=== PATIENT | male | born 1980 | race Caucasian/White ===

== ENCOUNTER 2017-08-25 10:17 | Emergency (ER) | payer BC, OTHER ==
[2017-08-25 11:59] VITALS: BP 124/70
--- NOTE | 2017-08-25 12:29 | UC ---
Throat Pain/Nasal K[place] HPI - History of Current Complaint Chief Complaint: UCRespiratory Stated Complaint: SORE THROAT Hx Obtained From: Patient Onset/Duration: Gradual Onset - started 3 days ago with cold symps, now has ST and nasal congestion. was worse this am than now Severity: Moderate Associated Signs & Symptoms: Positive: Negative - Allergies/Home Medications Allergies/Adverse Reactions: Allergies Allergy/AdvReac Type Severity Reaction Status Date / Time No Known Allergies Allergy Verified 08/25/17 11:52 Home Medications: Home Medications Acetaminophen [Acetaminophen Extra Stren] 2 tab PO QID PRN 08/25/17 [History Confirmed 08/25/17] Diphenhydramine HCl [Benadryl Allergy 25 MG CAP] 1 cap PO BID PRN 08/25/17 [ History Confirmed 08/25/17] PMH/Surg Hx/FS Hx/Imm Hx Previously Healthy: Yes - Surgical History Surgical History: Yes Surgery Procedure, Year, and Place: SHOULDER SURGERY WHEN YOUNGER - Family History Known Family History: Positive: None - Social History Occupation: Employed Full-time Lives: With Family Alcohol Use: Daily Substance Use Type: None Smoking Status (MU): Never Smoked Tobacco - Immunization History Vaccination Up to Date: Yes Review of Systems Constitutional: Negative Skin: Negative ENT: Sore Throat, Sinus Congestion Respiratory: Negative Cardiovascular: Negative Gastrointestinal: Negative Neurological: Negative Psychological: Negative All Other Systems Reviewed And Are Negative: Yes Physical Exam Triage Information Reviewed: Yes Appearance: Well-Appearing, No Pain Distress, Well-Nourished Vital Signs: Initial Vital Signs Temp 98.3 F 08/25/17 11:53 Pulse 69 08/25/17 11:53 Resp 16 08/25/17 11:53 BP 124/70 08/25/17 11:53 Pulse Ox 98 08/25/17 11:53 Vital Signs Reviewed: Yes Eye Exam: Normal Eyes: Positive: Conjunctiva Clear ENT: Positive: Pharyngeal erythema, TMs normal. Negative: Sinus tenderness Neck: Positive: Supple, Nontender, No Lymphadenopathy Respiratory Exam: Normal Cardiovascular Exam: Normal Cardiovascular: Positive: RRR Neurological Exam: Normal Neurological: Positive: Alert Psychological Exam: Normal Skin Exam: Normal Skin: Negative: rashes Throat Pain/Nasal Course/Dx - Differential Dx/Diagnosis Differential Diagnosis/HQI/PQRI: Influenza, Sinusitis, Tonsillitis, URI Provider Diagnoses: Upper respiratory infection Discharge - Discharge Plan Condition: Good Disposition: HOME Patient Education Materials: Upper Respiratory Infection (ED) Referrals: Miky Montilla MD [Primary Care Provider] - 3 Days (if no better) Additional Instructions: drink plenty of fluids use over the counter cold symptom relief medicine as directed
== END 2017-08-25 12:38 | disposition home or self-care (01) ==
LOC: UCEAST 10:17
DX: J06.9 Acute upper respiratory infection, unspecified (principal)
CPT/HCPCS: 87651; 99211; G0463

== ENCOUNTER 2019-03-08 16:47 | Emergency (ER) | payer BC ==
[2019-03-08 16:56] VITALS: BP 129/83
--- NOTE | 2019-03-08 17:19 | UC ---
Respiratory Complaint HPI - HPI Summary HPI Summary: 38 year old make presents with sinus pressure over the past few days. Denies associated uri symptoms, no cough, runny nose, fever nor ear pain. He has noted occasional ear pressure. Denies severe headache, no pain in his temples, visual disturbance nor weakness. - History of Current Complaint Chief Complaint: UCGeneralIllness Stated Complaint: headache, AND SINUS PRESSURE Time Seen by Provider: 03/08/19 17:00 Hx Obtained From: Patient Onset/Duration: Gradual Onset Timing: Intermittent Episodes Severity Initially: Mild Pain Intensity: 4 Aggravating Factors: Nothing Alleviating Factors: Nothing Associated Signs And Symptoms: Positive: Sinus Discomfort - Risk Factors Pulmonary Embolism Risk Factors: Negative Cardiac Risk Factors: Negative Pseudomonas Risk Factors: Negative Tuberculosis Risk Factors: Negative - Allergies/Home Medications Allergies/Adverse Reactions: Allergies Allergy/AdvReac Type Severity Reaction Status Date / Time No Known Allergies Allergy Verified 03/08/19 16:56 Home Medications: Home Medications Cbd Oil 0.5 ml PO QPM 03/08/19 [History Confirmed 03/08/19] L.acidoph,Paracasei, B.lactis [Probiotic] 1 each PO DAILY 03/08/19 [History Confirmed 03/08/19] Magnesium Oxide [Magnesium] 500 mg PO DAILY 03/08/19 [History Confirmed 03/08/19 ] Multivitamin [Multivitamins] 1 each PO DAILY 03/08/19 [History Confirmed ] Pseudoephedrine HCL ER TAB* [Sudafed 12 Hour*] 120 mg PO BID PRN 03/08/19 [ History Confirmed 03/08/19] PMH/Surg Hx/FS Hx/Imm Hx Previously Healthy: Yes - Surgical History Surgical History: Yes Surgery Procedure, Year, and Place: SHOULDER SURGERY WHEN YOUNGER - Family History Known Family History: Negative: Cardiac Disease, Hypertension, Diabetes - Social History Alcohol Use: Weekly Substance Use Type: None Substance Use Comment - Amount & Last Used: CBD oil Smoking Status (MU): Never Smoked Tobacco - Immunization History Vaccination Up to Date: Yes Review of Systems All Other Systems Reviewed And Are Negative: Yes Constitutional: Positive: Negative Skin: Positive: Negative Eyes: Positive: Negative ENT: Positive: Sinus Pain/Tenderness - maxillary Respiratory: Positive: Negative Cardiovascular: Positive: Negative Gastrointestinal: Positive: Negative Motor: Positive: Negative Neurovascular: Positive: Negative Musculoskeletal: Positive: Negative Neurological: Positive: Negative Physical Exam Triage Information Reviewed: Yes Appearance: Well-Appearing, No Pain Distress Vital Signs: Initial Vital Signs Temp 98.1 F 03/08/19 16:52 Pulse 77 03/08/19 16:52 Resp 16 03/08/19 16:52 BP 129/83 03/08/19 16:52 Pulse Ox 100 03/08/19 16:52 Vital Signs Reviewed: Yes Eye Exam: Normal Eyes: Positive: Conjunctiva Clear ENT Exam: Normal ENT: Positive: Sinus tenderness - maxillary Dental Exam: Normal Neck exam: Normal Neck: Positive: Supple Respiratory Exam: Normal Respiratory: Positive: Lungs clear, Normal breath sounds, No respiratory distress Cardiovascular Exam: Normal Cardiovascular: Positive: RRR, No Murmur Abdomen Description: Positive: Nontender Musculoskeletal Exam: Normal Musculoskeletal: Positive: Strength Intact, ROM Intact Neurological Exam: Normal Psychological Exam: Normal Skin Exam: Normal Respiratory Course/Dx - Course Course Of Treatment: Symptomatic treatment with otc antihistamine and decongestant prn. No evidence of bacterial infection. Start Flonase NS 2 sprays each nostril daily. - Differential Dx/Diagnosis Provider Diagnosis: Sinusitis Discharge - Sign-Out/Discharge Documenting (check all that apply): Patient Departure All imaging exams completed and their final reports reviewed: No Studies - Discharge Plan Condition: Stable Disposition: HOME Prescriptions: Fluticasone NASAL SPRAY 50MCG* [Flonase NASAL SPRAY 50MCG*] 2 spray BOTH NARES DAILY #1 btl Patient Education Materials: Sinusitis (ED) Referrals: Miky Montilla MD [Primary Care Provider] - Additional Instructions: Start Flonase Nasal [place] for sinusitis. If fever develops or if symptoms persist or worsen, follow-up with Primary Care Provider. - Billing Disposition and Condition Condition: STABLE Disposition: Home
== END 2019-03-08 17:25 | disposition home or self-care (01) ==
LOC: UCEAST 16:47
DX: J32.9 Chronic sinusitis, unspecified (principal)
CPT/HCPCS: 99202; G0463